=== PATIENT | female | born 1995 | race Caucasian/White ===

== ENCOUNTER 2016-05-20 20:57 | Emergency (ER) | payer OTHER ==
[2016-05-20] MEDS ORDERED: KETOROLAC 60 MG/2 ML VIAL IM ONE (23:58)
== END 2016-05-21 00:30 | disposition home or self-care (01) ==
LOC: ER 20:57
DX: S29.012A Strain of muscle and tendon of back wall of thorax, initial encounter (principal); M41.9 Scoliosis, unspecified
CPT/HCPCS: 74022; 81003; 81025; 96372